=== PATIENT | female | born 1995 | race Caucasian/White ===

== ENCOUNTER 2018-07-15 17:27 | Inpatient (IN) | payer OTHER ==
[~2018-07-15] VITALS: Ht 170.2 cm; Wt 131.1 kg
[~2018-07-15 17:27] MED LIST: AMOXICILLIN875 M1 PO; BACTRIM DS TAB1 EACH PO; CYCLOBENZAPRINE5 M2 PO; FIORICET 325 MG1 TAB PO; MOTRIN 600 MG600 MG PO; NORCO 325 MG-51 TAB PO; NORCO 5-325 TA1 EACH PO; PHENERGAN25 M1 PO; TOPIRAMATE50 MG PO; TYLENOL WITH C1 EACH PO; VICODIN 5-3001 EACH PO
[2018-07-15 19:50] LABS: ABSOLUTE BASOPHIL COUNT 0.2 /CUMM (0.0-0.2); ABSOLUTE EOSINOPHIL COUNT 0.1 /CUMM (0.0-0.7); ABSOLUTE GRANULOCYTE CT 14.7 /CUMM (1.4-6.5); ABSOLUTE LYMPH COUNT 2.1 /CUMM (1.2-3.4); ABSOLUTE MONOCYTE COUNT 1.6 /CUMM (0.10-0.60); BASOPHIL % 0.8 % (0.0-2.0); EOSINOPHIL % 0.4 % (0-5); GRANULOCYTE % 78.8 % (42.2-75.2); HEMATOCRIT 37.3 % (37-47); MEAN CORPUSCULAR HGB CONC 33.7 G/DL (33.0-37.0); MEAN CORPUSCULAR VOLUME 86.1 FL (81.0-99.0); MEAN PLATELET VOLUME 6.5 FL (7.4-10.4); PLATELET COUNT 440 /CUMM (130-400); RBC DISTRIBUTION WIDTH 15.7 % (11.5-14.5); RED BLOOD CELL CT 4.33 /CUMM (4.20-5.40); WHITE BLOOD CELL COUNT 18.7 /CUMM (4.8-10.8)
--- NOTE | 2018-07-15 20:07 | ED GENERAL ADULT ---
History of Present Illness General Chief Complaint: Skin Rash/ Abcess Stated Complaint: ABSCESS ON BUTTOCKS Source: patient Exam Limitations: no limitations Vital Signs & Intake/Output Vital Signs & Intake/Output Vital Signs Date Time Temp Pulse Resp B/P B/P Pulse O2 O2 Flow FiO2 Mean Ox Delivery Rate 07/16 0116 Room Air 07/16 0054 98.2 88 20 135/83 98 07/15 2223 98.2 97 18 130/58 95 Room Air 07/15 2006 100.3 121 18 121/67 96 Room Air 07/15 1947 Room Air Room Air 07/15 1730 99.1 122 18 130/91 98 Room Air ED Intake and Output 07/16 0000 07/15 1200 Intake Total 0 Output Total Balance 0 Intake, Oral 0 Patient 290 lb Weight Weight Reported by Patient Measurement Method Allergies Coded Allergies: NO KNOWN ALLERGIES (07/31/16) Triage Note: 22 YO FEMALE TO [facility] FOR EVAL OF ABCESS ON L SIDE OF BOTTUCKS X2 DAYS. STATES HX OF SAME. TEMP 99.1 IN TRIAGE. Triage Nurses Notes Reviewed? yes Onset: Gradual Duration: day(s): Timing: remote history Severity Numbers: 8 : No Patient currently breastfeeds: No HPI: Patient is a 22-year-old female presenting to the ED with complaints of a perirectal abscess. Patient began to experience pain 1 day ago and has gradually worsened. Pain is described as an 8/10, worse with sitting and lying supine, improved with lying prone and rest. Patient states this is happened in the past approximately 2 years ago where she had an abscess incised and drained There is no pertinent medical or surgical history. The patient takes no daily medications. NKDA. (Jim Liao) Past History Travel History Traveled to [place] past 21 day No Medical History Any Pertinent Medical History? none Neurological: migraine EENT: NONE Cardiovascular: NONE Respiratory: NONE Gastrointestinal: NONE Hepatic: NONE Renal: NONE Musculoskeletal: chronic back pain Psychiatric: NONE Endocrine: NONE Blood Disorders: NONE Cancer(s): NONE TRAVEL RN OR/Reproductive: NONE Surgical History Surgical History: non-contributory Psychosocial History What is your primary language Malian Tobacco Use: Never used Family History Hx Contributory? No (Jim Liao) Review of Systems Review of Systems Constitutional: Denies: chills, diaphoresis, fever. EENTM: Denies: blurred vision, double vision, visual changes. Respiratory: Denies: cough, hemoptysis, short of breath. Cardiovascular: Denies: chest pain, edema, orthopena. GI: Denies: abdominal pain, constipation, diarrhea, distention, bowel incontinence, nausea, bloody stool. Genitourinary: Denies: discharge, dysuria. Skin: Reports: erythema. (Jim Liao) Physical Exam Physical Exam General Appearance: well developed/nourished, no apparent distress, alert, awake , anxious Head: atraumatic, normal appearance Eyes: Bilateral: normal appearance, EOMI. Ears, Nose, Throat: hearing grossly normal Neck: normal inspection, supple, full range of motion Respiratory: normal breath sounds, no respiratory distress, lungs clear Cardiovascular: regular rate/rhythm Gastrointestinal: soft, non-tender Rectal: mass Comments: There is approximately a 3 cm high perianal abscess to the left of the rectum extending laterally approximately 6 cm. It is erythemic in nature, there is a small area of fluctuance medially. Skin intact throughout. Core Measures ACS in differential dx? No CVA/TIA Diagnosis: No Sepsis Present: No Sepsis Focused Exam Completed? No (Jim Liao) Progress Differential Diagnoses I considered the following diagnoses in my evaluation of the patient: [Perianal abscess, fistula, cellulitis, allergic reaction, dermatitis,] Plan of Care: Orders Procedure Date/time Status Regular Diet 07/16 B Active CBC WITHOUT DIFFERENTIAL 07/16 0600 Active BASIC ELECTROLYTES PLUS BUN&CR 07/16 0600 Active Pathway - chart 07/16 17 Active House Staff 07/16 17 Active Patient Data 07/16 17 Active Weight 07/167 Active Vital Signs 07/16 17 Active Teach/Educate 07/16 17 Active Pain Treatment and Response 07/16 17 Active Nutritional Intake, Monitor 07/16 17 Active Isolation 07/16 17 Active Intake & Output 07/16 17 Active Patient Care Conference 07/16 17 Active Activity/Ambulation 07/16 17 Active Code Status 07/16 17 Active VTE Mechanical Prophylaxis 07/16 UNK Active Vital Signs 07/16 UNK Active Activity/Ambulation 07/16 UNK Active Patient Data 07/15 2339 Active Saline Lock 07/15 2335 Active Misc Message 07/15 2335 Active ED Holding Orders 07/15 2335 Active Admit to inpatient 07/15 2335 Active Vital Signs 07/15 2335 Active Code Status 07/15 2335 Complete Add-on Test (ER Only) 07/15 2309 Active Add-on Test (ER Only) 07/15 2014 Active Intake & Output 07/15 1947 Active LACTIC ACID 07/15 1945 Complete HUMAN BETA HCG SCREEN 07/15 1945 Complete COMPREHENSIVE METABOLIC PANEL 07/15 1729 Complete CBC WITHOUT DIFFERENTIAL 07/15 172 Complete Current Medications Sig/Joi Start time Last Medication Dose Stop Time Status Admin Clindamycin 600 MG IQ8 07/16 0800 AC (Cleocin) Dextrose/Water 50 ML (D5W) Heparin Sodium 5,000 UNIT Q8 07/16 0600 AC (Porcine) Docusate Sodium 100 MG DAILY NEEDED PRN 07/16 0130 AC (Colace) Senna 187 MG AT BEDTIME NEED.. 07/16 0130 AC (Senokot) Acetaminophen 650 MG Q6P PRN 07/16 0030 AC 07/16 (Tylenol) 0125 Ibuprofen 600 MG Q6P PRN 07/16 0030 AC (Motrin) Sodium Chloride 1,000 ML Q13H 07/16 0030 AC (Normal Saline 0.9%) 07/16 1329 Laboratory Tests 07/15/181944: Anion Gap 8, Estimated GFR > 60, BUN/Creatinine Ratio 14.3, Glucose 89, Lactic Acid 0.9, Calcium 9.0, Total Bilirubin 0.5, AST 17, ALT 28, Alkaline Phosphatase 73, Total Protein 6.9, Albumin 3.8, Globulin 3.1, Albumin/Globulin Ratio 1.2, Total Beta HCG NEGATIVE, CBC w Diff NO MAN DIFF REQ, RBC 4.33, MCV 86.1, MCH 29.0, MCHC 33.7, RDW 15.7 H, MPV 6.5 L, Gran % 78.8 H, Lymphocytes % 11.3 L, Monocytes % 8.7, Eosinophils % 0.4, Basophils % 0.8, Absolute Granulocytes 14.7 H, Absolute Lymphocytes 2.1, Absolute Monocytes 1.6 H, Absolute Eosinophils 0.1 , Absolute Basophils 0.2 22-year-old female presenting to the ED with complaints of a perirectal abscess. Patient began to experience pain 1 day ago and has gradually worsened. Pain is described as an 8/10, worse with sitting and lying supine, improved with lying prone and rest. Patient states this is happened in the past approximately 2 years ago where she had an abscess incised and drained 2. She was referred to a Dr. Mendoza whom she admits she never followed up with. A CT scan with IV contrast was ordered to determine the depth of the abscess and determine how close it was to the rectum. CT scan results revealed a left perianal fistula measuring approximately 3.62.7 CT results combined with fever and elevated white count, the patient will be admitted with a surgical consult. 22:50 All prescriptions called in to [facility] on [address] will be canceled. Patient signed out verbally to Radha De Luna PA-C while mine production engineer surgical Attending was contacted 11:11pm. (Jim Liao) July 16, 2018 at 12:34 AM Patient signed out to me by MARKIE Sandoval 22-year-old female who presented with a left gluteal abscess. CT scan showed left perianal fistula. I performed I&D as described in the procedure note. Surgery was consulted who felt there was no acute surgical intervention needed. Patient was covered with IV clindamycin. Patient has been showing systemic symptoms concerning for sepsis. She has been febrile to 100.6 Fahrenheit with nausea, and has leukocytosis to 18. She will be admitted to general medicine for IV antibiotics. Radha De Luna PA-C (Radha Isaac) Initial ED EKG: none (Jim Liao) Differential Diagnoses I considered the following diagnoses in my evaluation of the patient: (Radha Isaac) Departure Departure Disposition: STILL A PATIENT Condition: Stable Clinical Impression Primary Impression: Perianal abscess Secondary Impressions: Perianal fistula Referrals: Susan LUNA,Cricket Koenig (PCP/Family) Departure Forms: Customer Survey General Discharge Information (Jim Liao) Admission Note Spoke With: Jarvis Newton MD Documentation of Exam: Documentation of any treatments & extenuating circumstances including Concerns Regarding Discharge (functional status, medication knowledge or non-compliance, living conditions, etc.) that warrant an admission rather than observation: [ Hemodynamic monitoring, IV antibiotics, wound care, surgery consultation, colorectal consultation, serial labs] (Radha Isaac) PA/SENIOR LINUX UNIX ADMINISTRATOR Co-Sign Statement Statement: ED Attending supervision documentation- [x] I saw and evaluated the patient. I have also reviewed all the pertinent lab results and diagnostic results. I agree with the findings and the plan of care as documented in the PA's/SENIOR LINUX UNIX ADMINISTRATOR's documentation. I discussed with dr. Newton... gen surg declined admission... given presents of systemic inflammation... (elevated wbc count, tachycardia)... pt merits iv abx, admission. [] I have reviewed the ED Record and agree with the PA's/SENIOR LINUX UNIX ADMINISTRATOR's documentation. [] Additions or exceptions (if any) to the PAs/SENIOR LINUX UNIX ADMINISTRATOR's note and plan are summarized below: [] (Odalis LUNA,Jerry Orellana) Procedures Incision and Drainage Site: left glute Blade Size: 11 I & D Procedure: Yes: betadine prep. Progress: Anesthetized with 1% Lidoderm Elliptical incision made Copious purulent drainage expressed Packing placed Patient tolerated the procedure well (Radha Isaac) Critical Care Note Critical Care Note Critical Care Time: non-applicable (Jim Liao) ED Attending Observation Initial Observation Note: I have seen and personally examined FEDERICO CORREIA on 07/15/18 at 2226. I agree with the current emergency department documentation. The disposition (admission or discharge) is uncertain at this time, she needs a period of observation for the following reason(s): The ED Nurse caring for this patient has been personally informed as to what the patient is being observed for. (Jim Liao)
[2018-07-15] MEDS ORDERED: AUGMENTIN 875-1 EACH PO (22:26)
--- NOTE | 2018-07-15 22:29 | CT SCAN REPORT ---
EXAMINATION: CT PELVIS WITH CONTRAST CLINICAL INFORMATION: Perirectal abscess, close to rectum. COMPARISON: CT abdomen and pelvis 03/27/2014. TECHNIQUE: Helical scanning was performed with submillimeter collimation through the pelvis with 95 mL of Optiray 320 intravenous contrast. Sagittal and coronal multiplanar 2-D reconstructions were obtained. DLP: 1259 mGy-cm FINDINGS: There is a heterogeneous fistula/collection in the left perianal fat which tracks to the left intergluteal skin surface. This measures approximately 3.6 x 2.7 x 6.9 cm and contains mixed gas and fluid. Suspect a thin tract extending from the left lateral wall of the anus at the 3 o'clock position (12 o'clock defined as anterior and 6 o'clock posterior) to the cephalad aspect of the aforementioned fistula/collection (see assistance representative weiss images). There is stranding in the fat adjacent to this tract/collection. No evidence of extension of this tract through the levator ani muscle. No other discrete fistula or abscess. No free pelvic fluid. Bowel gas pattern is nonobstructive. The bladder is unremarkable. No suspicious ovarian or adnexal lesion. No adenopathy. No acute osseous abnormalities. There is chronic mineralization in the posterior lumbar soft tissues. IMPRESSION: Findings suggest a left perianal fistula as described above (see weiss images).
[2018-07-15] MEDS ORDERED: BACTRIM DS TAB1 EACH PO (22:38)
[2018-07-15] MEDS ORDERED: KEFLEX500 M1 PO (22:38)
--- NOTE | 2018-07-15 23:58 | History & Physical ---
TahirMelissa 07/15/18 7788: General Information and HPI MD Statement: I have seen and personally examined FEDERICO CORREIA and documented this H&P. The patient is a 22 year old F who presented with a patient stated chief complaint of []. Source of Information: patient Exam Limitations: no limitations History of Present Illness: 22 year old female with PMH migraine, chronic back pain, and h/o felicia anal abscess 2 years ago requiring 2 I&D as it became infected after first I&D. She was referred to Dr. Mendoza at that time, but did not follow up with him. She reports a two day history of rectal pain that was progressive in nature. She has tried sitz baths and heat to the area without relief of symptoms. She reports her last BM was yesterday, small/non bloody 2/2 pain. She decided to come to the ED for further care. Denies fever, chills, n/v/d, constipation, abdominal pain, chest pain, SOB. Allergies/Medications Allergies: Coded Allergies: NO KNOWN ALLERGIES (07/31/16) Past History Travel History Traveled to [place] past 21 day No Medical History Neurological: migraine EENT: NONE Cardiovascular: NONE Respiratory: NONE Gastrointestinal: NONE, felicia anal abscess Hepatic: NONE Renal: NONE Musculoskeletal: chronic back pain Psychiatric: NONE Endocrine: NONE Blood Disorders: NONE Cancer(s): NONE ECOLOGIST/Reproductive: NONE Surgical History Surgical History: non-contributory Past Family/Social History Psychosocial History Where do you live? Home Who Do You Live With? self Services at Home: None Primary Language: Kyrgyz Smoking Status: Current Everyday Smoker (cut back from 1ppd to 4cigs) ETOH Use: occasional use Illicit Drug Use: marijuana (frequent marijuana use) Employment History Employment Employed Profession/Employer gas station and [employer] Review of Systems Review of Systems Constitutional: Reports: no symptoms. EENTM: Reports: no symptoms. Cardiovascular: Reports: no symptoms. Respiratory: Reports: no symptoms. GI: Reports: see HPI. Genitourinary: Reports: no symptoms. Musculoskeletal: Reports: no symptoms. Skin: Reports: erythema. Neurological/Psychological: Reports: no symptoms. Exam & Diagnostic Data Last 24 Hrs of Vital Signs/I&O Vital Signs Date Time Temp Pulse Resp B/P B/P Pulse O2 O2 Flow FiO2 Mean Ox Delivery Rate 08/26 2223 98.2 97 18 130/58 95 Room Air 07/15 2006 100.3 121 18 121/67 96 Room Air 07/15 1947 Room Air Room Air 07/15 1730 99.1 122 18 130/91 98 Room Air Intake & Output 07/16 0800 07/16 0000 07/15 1600 Intake Total 0 Output Total Balance 0 Intake, Oral 0 Patient 290 lb Weight Weight Reported by Patient Measurement Method Physical Exam General Appearance Alert, Oriented X3, Cooperative, No Acute Distress Skin felicia anal abscess s/p I&D with dressing in place; surrounding erythema and foul odor Skin Temp/Moisture Exam: Warm/Dry HEENT Atraumatic Neck Supple Cardiovascular Regular Rate, Normal S1, Normal S2, No Murmurs Lungs Clear to Auscultation Abdomen Normal Bowel Sounds, Soft, No Tenderness Extremities No Edema, Normal Pulses Rectal see skin exam Assessment/Plan Assessment: 22 year old female with PMH migraine, chronic back pain, and h/o felicia anal abscess 2 years ago requiring 2 I&D as it became infected after first I&D. She was referred to Dr. Mendoza at that time, but did not follow up with him. She reports a two day history of rectal pain that was progressive in nature. She has tried sitz baths and heat to the area without relief of symptoms. She reports her last BM was yesterday, but small 2/2 pain. Incision and drainage with packing was performed in ED by ED MARKIE. Unfortunately no cultures were obtained. Surgery was consulted with recommendation of IV abx followed by PO abx and follow up as outpatient with Dr. Lechuga; will need daily dressing changes; stool softners and sitz baths. She will be admitted to the general medicine service for further treatment of the following: Problem List: 1. Perianal abscess 2. Leukocytosis 3. Tachycardia 4. Thrombocytosis 5. Morbid obesity 6. Current smoker Admission Data: VS Tmax 100.3 P122 RR18 BP130/91 Sat98%RA Labs: WBC 18.7 H/H 12.6/37.3 Plt 440 Na 136 K4.1 BUN/Cr 10/0.7 Lactate 0.9 LFTs; Alk Phos negative. Beta HCG negative ED tx: I&D with purulent drainage and subsequently packed; clindamycin; zofran; toradol; tylenol 650mg x1dose CT pelvis: There is a heterogeneous fistula/collection in the left perianal fat which tracks to the left intergluteal skin surface. This measures approximately 3.6 x 2.7 x 6.9 cm and contains mixed gas and fluid. Suspect a thin tract extending from the left lateral wall of the anus at the 3 o'clock position. Findings suggest a left perianal fistula. There is stranding in the fat adjacent to this tract/collection. No evidence of extension of this tract through the levator ani muscle. #Left gluteal/perianal abscess-recurrent likely 2/2 poor hygeine given patient BMI and less likely to be associated with IBD since patient with no history of diarrhea/abdominal pain/oral ulcers. -s/p I&D in ED with packing in place -daily packing changes -Continue clindamycin with coverage of Gram + and anaerobes; consider role for gram negative coverage if abscess formation related to poor hygeine in setting of stool. Patient with fistula that currently is not communicating with GI tract on CT imaging and no involvement with levator ani muscle. Patient's last I &D culture grew mixed alisia which is not helpful in resolving the decision to cover gram negatives. If gram negatives are included in possible etiology of infection; ciprofloxacin would be a good abx for coverage. -Bowel care: senna/colace -Follow up outpatient with Dr. Lechuga -Continue daily packing changes with sitz baths at home upon discharge until seeing Dr. Lechuga #Leukocytosis-likely in response to underlying perianal infection with predominant granulocytes -AM labs to monitor leukocytosis resolution with administration of abx; if not down trending on current regimen, consider broadening spectrum of coverage to include gram negatives #Tachycardia-likely physiologic response to fever and infection. Patient without sx of palpitations; chest pain; otherwise young and healthy except for morbid obesity -continue to monitor vitals #Thrombocytosis-likely reactive to current infection -continue to monitor #Morbid obesity-likely 2/2 lifestyle/food choices #Current smoker -patient has decreased from 1ppd to 4 cigarettes -patient has been smoking for 8 years -discussed/encouraged smoking cessation DVT prophylaxis: heparin/ ALPS/ ambulation Code status: full code As Ranked By This Provider Problem List: 1. Left buttock abscess 2. Perianal abscess 3. Perianal fistula Core Measures/Misc (08/06) Acute Coronary Syndrome ACS Diagnosis: No Congestive Heart Failure Congestive Heart Failure Diagnosis No Cerebrovascular Accident CVA/TIA Diagnosis: No VTE (View Protocol) VTE Risk Factors Acute Medical Illness No Mechanical VTE Prophylaxis d/t N/A MechProphylax Ordered No VTE Pharm Prophylaxis d/t NA PharmProphylax ordered Sepsis (View protocol) Sepsis Present: No If YES complete Sepsis Event Note If YES complete Sepsis Event Note Karl Moffett 07/16/18 0121: Core Measures/Misc (08/06) Sepsis (View protocol) If YES complete Sepsis Event Note If YES complete Sepsis Event Note Resident Review Statement Resident Statement: examined this patient, discussed with web development intern, agreed with web development intern, discussed with family, reviewed EMR data (avail), discussed with nursing , discussed with case mgmt, reviewed images, amended to note Other Findings: This is a 22-year-old female with past medical history significant for migraine, back pain presented to the emergency department for evaluation of perianal abscess. Patient reports that she has history of perianal abscess twice in 2016 status post I/D. She was advised to follow-up with Dr. Mendoza as an outpatient but she failed to follow-up. Patient reports 2 day history of rectal pain, 10 out of 10 , she tried sitz bath without any relief of symptoms. Given worsening pain she presented to the ER for further evaluation of perianal abscess. On review of systems she has no fever, chills, chest pain, palpitations, cough, nausea, vomiting, abdominal pain, change in bladder or bowel habits. She denied any constipation, last bowel movement was on 07/15/2018. Denied any blood in stool. She smokes 1 pack per day/cut down to 4 cigarettes per day. Occasional use of alcohol. She reports illicit drug use marijuana frequently ---- VS Tmax 100.3 P122 RR18 BP130/91 Sat98%RA Labs: WBC 18.7 H/H 12.6/37.3 Plt 440 Na 136 K4.1 BUN/Cr 10/0.7 Lactate 0.9 LFTs; Alk Phos negative. Beta HCG negative ED tx: I&D with purulent drainage and subsequently packed; clindamycin; zofran; toradol; tylenol 650mg x1dose CT pelvis: There is a heterogeneous fistula/collection in the left perianal fat which tracks to the left intergluteal skin surface. This measures approximately 3.6 x 2.7 x 6.9 cm and contains mixed gas and fluid. Suspect a thin tract extending from the left lateral wall of the anus at the 3 o'clock position. Findings suggest a left perianal fistula. There is stranding in the fat adjacent to this tract/collection. No evidence of extension of this tract through the levator ani muscle. 1. Perianal abscess Patient has history of recurrent perianal abscess, status post incision and drainage in 2016 twice. She presented now with similar complaints. Mostly associated from morbid obesity and poor hygiene. Patient denied any abdominal pain, blood in stools, history of Crohn's disease. * Admit to general medicine * She is status post incision and drainage in the emergency room with packing in place. * Monitor for fever * Please trend leukocyte count * Continue IV clindamycin 600 mg every 8 hours for gram-positive and anaerobic coverage * Consider switching to oral antibiotics if her vitals remained stable * Daily dressings * Patient was evaluated by surgical PA in the emergency room, recommended follow -up with Dr. Rajput as an outpatient this week. * consider GI referal/ follow-up as an outpatient * Avoid constipation * Bowel regimen was ordered * Sitz bath at home upon discharge Positive SIRS criteria She fulfills SIRS criteria at the time of admission T-max 100.3, leukocytosis 18.7, tachycardia 97. Source of infection was perianal abscess. * Follow for fevers * Trend leukocyte count * Lactic acid in normal limit * Continue antibiotics Thrombocytosis Most likely reactive to current infection Continue to monitor Current smoker Smoking cessation counseling given Morbid obesity DVT prophylaxis subcu heparin Regular diet Full code Pain pathway ordered WasJarvis mcgee MD 07/16/18 0610: Core Measures/Misc (08/06) Sepsis (View protocol) If YES complete Sepsis Event Note If YES complete Sepsis Event Note Attending MD Review Statement Attending Statement Attending MD Statement: examined this patient, discuss w/resident/PA/PLANE RUNNER, agreed w/resident/PA/PLANE RUNNER Attending Assessment/Plan: 22 year-old female with prior history of perianal abscess presents with rectal and buttock pain over the last 2 days. Demonstrating systemic signs of illness; fever, chills. Temp to 100.3 in ER with left shifted leukocytosis, thrombocytosis. Given clindaymycin in ER along with NSAIDs and Tylenol for the pain/fever. Surgery consult called after CT scan showed a large left perianal fat fluid collection, measuring 3.6cm x 2.7 x 6.9. Mixed fluid and gas is shown, and there is thin stranding (fistula formation) running from the left lateral wall of the anus to the large fluid collection. Underwent bedside incision and drainage (fluid expressed wasn't sent for culture). Will continue with clindaymycin for now. Non-toxic in appearance. Admit to inpatient for management of large perianal abscess with fistula extension. This is her second occurrence of this. Anaerobic and gram positive coverage with clindaymycin. Pain and fever control with Tylenol/NSAIDS/opiates. Zofran as needed. Surgery consultation already called. Query if unrecognized Crohns disease is possible given second occurrence of this- once the acute episode has been managed, likely evaluation by Gastroenterology (perhaps as an outpatient) would be reasonable. Brady Newton MD
--- NOTE | 2018-07-16 00:07 | Cons- General Surgery ---
JeanetteMarni 07/15/18 2356: General Information and HPI Consulting Request Date of Consult: 07/15/18 Requested By: ER, Dr Barajas Reason for Consult: perianal abscess Source of Information: patient Exam Limitations: no limitations History of Present Illness: 22 y/o female presents to the ER with several day history of left buttock pain. 2 years ago she had an abscess in this area with similar pain and symptoms. She had it drained and packed in the ER. She did not follow-up as it healed on its own over time. She denies fevers or chills and feels well. No nausea, vomiting or diarrhea, no history of crohns or UC. BMs have been normal without blood. Allergies/Medications Allergies: Coded Allergies: NO KNOWN ALLERGIES (07/31/16) Current Medications: Current Medications Sig/Joi Start time Last Medication Dose Route Stop Time Status Admin Acetaminophen 0 .STK-MED ONE 07/15 2105 DC PO Acetaminophen 650 MG ONCE ONE 07/15 2100 DC 07/15 PO 07/15 Clindamycin 600 MG ONCE ONE 07/150 DC Dextrose/Water 50 ML IV 07/15 2359 Ketorolac 0 .STK-MED ONE 07/15 2105 DC Tromethamine .ROUTE Ketorolac 30 MG ONCE ONE 07/15 2100 DC 07/15 Tromethamine IM 07/15 Lidocaine 0 .STK-MED ONE 07/15 2337 DC .ROUTE Ondansetron HCl 0 .STK-MED ONE 07/15 2105 DC PO Ondansetron HCl 4 MG ONCE ONE 07/15 2100 DC 07/15 PO 07/15 Past History Medical History Neurological: migraine EENT: NONE Cardiovascular: NONE Respiratory: NONE Gastrointestinal: NONE Hepatic: NONE Renal: NONE Musculoskeletal: chronic back pain Psychiatric: NONE Endocrine: NONE Blood Disorders: NONE Cancer(s): NONE DUCT INSTALLER/Reproductive: NONE Surgical History Pertinent Surgical History: non-contributory Review of Systems Review of Systems Constitutional: Denies: chills, fever, weakness. EENTM: Denies: no symptoms. Cardiovascular: Denies: chest pain, palpitations. Respiratory: Denies: cough, orthopnea, short of breath. GI: Denies: abdominal pain, bloating, diarrhea, nausea, bloody stool, vomiting. Genitourinary: Denies: no symptoms. Musculoskeletal: Denies: no symptoms. Skin: Reports: cysts. Neurological/Psychological: Denies: no symptoms. Hematologic/Endocrine: Denies: no symptoms. Exam & Diagnostic Data Vital Signs and I&O Vital Signs Date Time Temp Pulse Resp B/P B/P Pulse O2 O2 Flow FiO2 Mean Ox Delivery Rate 07/15 2223 98.2 97 18 130/58 95 Room Air 07/15 2006 100.3 121 18 121/67 96 Room Air 07/15 1947 Room Air Room Air 07/150 99.1 122 18 130/91 98 Room Air Intake & Output 07/16 0000 07/15 1600 07/15 0000 07/14 1600 Intake Total 0 Output Total Balance 0 Intake, Oral 0 Patient 290 lb Weight Weight Reported by Patient Measurement Method Physical Exam: Patient is alert and oriented, comfortable on stretcher HEENT -WNL Neck -Supple, NT Chest - CTA Heart- RRR without MRG Abd -rounded without distention, NT rectal exam - tender indurated erythematous skin at the left perianal area - actively draining. I expressed approx 60cc of purulent drainage, rectal exam -tender without abscess within rectum but fistula present Plan - ER staff to complete I+D with irrigation and packing Last 24 Hours of Labs: Laboratory Tests 07/15 1945 Chemistry Sodium (137 - 145 mmol/L) 136 L Potassium (3.5 - 5.1 mmol/L) 4.1 Chloride (98 - 107 mmol/L) 103 Carbon Dioxide (22 - 30 mmol/L) 25 Anion Gap (5 - 16) 8 BUN (7 - 17 mg/dL) 10 Creatinine (0.5 - 1.0 mg/dL) 0.7 Estimated GFR (>60 ml/min) > 60 BUN/Creatinine Ratio (7 - 25 %) 14.3 Glucose (65 - 99 mg/dL) 89 Lactic Acid (0.7 - 2.1 mmol/L) 0.9 Calcium (8.4 - 10.2 mg/dL) 9.0 Total Bilirubin (0.2 - 1.3 mg/dL) 0.5 AST (14 - 36 U/L) 17 ALT (9 - 52 U/L) 28 Alkaline Phosphatase (<127 U/L) 73 Total Protein (6.3 - 8.2 g/dL) 6.9 Albumin (3.5 - 5.0 g/dL) 3.8 Globulin (1.9 - 4.2 gm/dL) 3.1 Albumin/Globulin Ratio (1.1 - 2.2 %) 1.2 Total Beta HCG (NEGATIVE) NEGATIVE Hematology CBC w Diff NO MAN DIFF REQ WBC (4.8 - 10.8 /CUMM) 18.7 H RBC (4.20 - 5.40 /CUMM) 4.33 Hgb (12.0 - 16.0 G/DL) 12.6 Hct (37 - 47 %) 37.3 MCV (81.0 - 99.0 FL) 86.1 MCH (27.0 - 31.0 PG) 29.0 MCHC (33.0 - 37.0 G/DL) 33.7 RDW (11.5 - 14.5 %) 15.7 H Plt Count (130 - 400 /CUMM) 440 H MPV (7.4 - 10.4 FL) 6.5 L Gran % (42.2 - 75.2 %) 78.8 H Lymphocytes % (20.5 - 51.1 %) 11.3 L Monocytes % (1.7 - 9.3 %) 8.7 Eosinophils % (0 - 5 %) 0.4 Basophils % (0.0 - 2.0 %) 0.8 Absolute Granulocytes (1.4 - 6.5 /CUMM) 14.7 H Absolute Lymphocytes (1.2 - 3.4 /CUMM) 2.1 Absolute Monocytes (0.10 - 0.60 /CUMM) 1.6 H Absolute Eosinophils (0.0 - 0.7 /CUMM) 0.1 Absolute Basophils (0.0 - 0.2 /CUMM) 0.2 Imaging Results: CT shows There is a heterogeneous fistula/collection in the left perianal fat which tracks to the left intergluteal skin surface. This measures approximately 3.6 x 2.7 x 6.9 cm and contains mixed gas and fluid. Suspect a thin tract extending from the left lateral wall of the anus at the 3 o'clock position (12 o'clock defined as anterior and 6 o'clock posterior) to the cephalad aspect of the aforementioned fistula/collection (see operations representative weiss images). There is stranding in the fat adjacent to this tract/collection. No evidence of extension of this tract through the levator ani muscle. No other discrete fistula or abscess. Admission Lab Results I reviewed the following labs: Laboratory Tests 07/15 1945 Chemistry Sodium (137 - 145 mmol/L) 136 L Potassium (3.5 - 5.1 mmol/L) 4.1 Chloride (98 - 107 mmol/L) 103 Carbon Dioxide (22 - 30 mmol/L) 25 Anion Gap (5 - 16) 8 BUN (7 - 17 mg/dL) 10 Creatinine (0.5 - 1.0 mg/dL) 0.7 Estimated GFR (>60 ml/min) > 60 BUN/Creatinine Ratio (7 - 25 %) 14.3 Glucose (65 - 99 mg/dL) 89 Lactic Acid (0.7 - 2.1 mmol/L) 0.9 Calcium (8.4 - 10.2 mg/dL) 9.0 Total Bilirubin (0.2 - 1.3 mg/dL) 0.5 AST (14 - 36 U/L) 17 ALT (9 - 52 U/L) 28 Alkaline Phosphatase (<127 U/L) 73 Total Protein (6.3 - 8.2 g/dL) 6.9 Albumin (3.5 - 5.0 g/dL) 3.8 Globulin (1.9 - 4.2 gm/dL) 3.1 Albumin/Globulin Ratio (1.1 - 2.2 %) 1.2 Total Beta HCG (NEGATIVE) NEGATIVE Hematology CBC w Diff NO MAN DIFF REQ WBC (4.8 - 10.8 /CUMM) 18.7 H RBC (4.20 - 5.40 /CUMM) 4.33 Hgb (12.0 - 16.0 G/DL) 12.6 Hct (37 - 47 %) 37.3 MCV (81.0 - 99.0 FL) 86.1 MCH (27.0 - 31.0 PG) 29.0 MCHC (33.0 - 37.0 G/DL) 33.7 RDW (11.5 - 14.5 %) 15.7 H Plt Count (130 - 400 /CUMM) 440 H MPV (7.4 - 10.4 FL) 6.5 L Gran % (42.2 - 75.2 %) 78.8 H Lymphocytes % (20.5 - 51.1 %) 11.3 L Monocytes % (1.7 - 9.3 %) 8.7 Eosinophils % (0 - 5 %) 0.4 Basophils % (0.0 - 2.0 %) 0.8 Absolute Granulocytes (1.4 - 6.5 /CUMM) 14.7 H Absolute Lymphocytes (1.2 - 3.4 /CUMM) 2.1 Absolute Monocytes (0.10 - 0.60 /CUMM) 1.6 H Absolute Eosinophils (0.0 - 0.7 /CUMM) 0.1 Absolute Basophils (0.0 - 0.2 /CUMM) 0.2 Assessment/Plan Assessment/Plan 22 y/o female with draining perianal abscess. I+D performed by ER staff. Admit to medicine for IV abx -started on clinda in ER, continue PO abx as outpatient will need daily dressing changes and follow-up with Dr. Lechuga as an outpatient in his office in 3 days for packing removal recommend sitz baths, colace and senna Consult Acknowledgment - Thank you for your consult request. Alexandrea GALLAGHER Abraham 07/16/18 5238: General Information and HPI Allergies/Medications Home Med List: Clindamycin HCl (Cleocin HCl) 300 MG CAPSULE 600 MG PO TID INFECTION Docusate Sodium (Colace) 100 MG CAPSULE 100 MG PO BID CONSTIPATION Lactobacillus Acidophilus (Acidophilus) 1 EACH CAPSULE 1 TAB PO TID ANTIBIOTIC USE Sennosides (Senna) 8.6 MG TABLET 2 TAB PO BID PRN CONSTIPATION Assessment/Plan Consult Acknowledgment - Thank you for your consult request. Attending MD Review Statement Attending Statement Attending MD Statement: examined this patient, discuss w/resident/PA/SUPERVISOR TRAIN OPERATIONS, agreed w/resident/PA/SUPERVISOR TRAIN OPERATIONS, reviewed EMR data (avail), reviewed images Attending Assessment/Plan: Patient seen and examined, agree with above. [place]-rectal abscess with a ? fistula. S/P I and D by ER last night. Patient reports marked improvement in pain and discomfort. Dressing in place. AVSS. WBC down. Wound care, sitz baths, Abx, will need outpatient f/u for possible fistula.
[2018-07-16 00:54] VITALS: BP 135/83
[2018-07-16 06:33] VITALS: BP 135/70
--- NOTE | 2018-07-16 07:10 | PN- Housestaff ---
Troy Padilla 07/16/18 0710: Subjective Follow-up For: Perianal abscess/fistula Subjective: She was seen and examined at bedside. She is complaining mild pain otherwise she is doing good. She denies fever, chills, constipation, diarrhea, chest pain , palpitation, previous history of any diarrhea or loose motion, hematochezia, melena. Review of Systems Constitutional: Reports: see HPI. Objective Last 24 Hrs of Vital Signs/I&O Vital Signs Date Time Temp Pulse Resp B/P B/P Pulse O2 O2 Flow FiO2 Mean Ox Delivery Rate 07/16 0633 97.7 76 20 135/70 98 07/16 0116 Room Air 07/16 0054 98.2 88 20 135/83 98 07/15 2223 98.2 97 18 130/58 95 Room Air 07/15 2006 100.3 121 18 121/67 96 Room Air 07/15 1947 Room Air Room Air 07/15 1730 99.1 122 18 130/91 98 Room Air Intake & Output 07/16 1600 07/16 0800 07/16 0000 Intake Total 262.5 0 Output Total Balance 262.5 0 Intake, IV 262.5 Intake, Oral 0 Patient 289 lb 290 lb Weight Weight Bed scale Reported by Patient Measurement Method Physical Exam General Appearance: Alert, Oriented X3, Cooperative, No Acute Distress Assessment/Plan Assessment: 22-year-old female morbidly obese presented to emergency department with several days of buttock pain history. She had similar complaints 2 years back. At that time it was diagnosed perianal abscess. Incision and drainage were done at that time. No on examination the patient has same problem perianal abscess. Incision and drainage done in the emergency department We will follow-up as outpatient patient with Dr. Rajput. *Give her IV antibiotic clindamycin *Patient will discharge today on oral antibiotic clindamycin 600 mg 3 times daily for 10 days. *Patient counseled regarding medication compliance *Patient counseled to follow-up Dr. Rajput on outpatient basis *Patient consult regarding clean hygiene Problem List: 1. Perianal abscess 2. Perianal fistula Pain Ratin Pain Location: No pain at the moment Pain Goal: Remain pain free Pain Plan: Pain management pathway Tomorrow's Labs & Rationales: Alaina Delgado 07/16/18 1126: Attending MD Review Statement Attending Statement Attending MD Statement: examined this patient, discuss w/resident/PA/INTERNAL RECRUITER, agreed w/resident/PA/INTERNAL RECRUITER, discussed with family, reviewed EMR data (avail), discussed with nursing, discussed with case mgmt, reviewed images, amended to note Attending Assessment/Plan: 22 year-old female with prior history of perianal abscess presents with rectal and buttock pain over the last 2 days. Admit to inpatient for management of large perianal abscess with fistula extension s/p incision and drainage. Transition of iv to PO abx. Pain and fever control with Tylenol/NSAIDS/opiates. Zofran as needed. Surgery follow up as outpatient. Anticipate discharge soon.
[2018-07-16 09:06] LABS: ABSOLUTE BASOPHIL COUNT 0.1 /CUMM (0.0-0.2); ABSOLUTE EOSINOPHIL COUNT 0.3 /CUMM (0.0-0.7); ABSOLUTE GRANULOCYTE CT 10.9 /CUMM (1.4-6.5); ABSOLUTE LYMPH COUNT 3.5 /CUMM (1.2-3.4); ABSOLUTE MONOCYTE COUNT 1.4 /CUMM (0.10-0.60); BASOPHIL % 0.3 % (0.0-2.0); EOSINOPHIL % 1.7 % (0-5); GRANULOCYTE % 67.5 % (42.2-75.2); HEMATOCRIT 34.2 % (37-47); MEAN CORPUSCULAR HGB 29.8 PG (27.0-31.0); MEAN CORPUSCULAR HGB CONC 34.1 G/DL (33.0-37.0); MEAN CORPUSCULAR VOLUME 87.5 FL (81.0-99.0); MEAN PLATELET VOLUME 7.2 FL (7.4-10.4); PLATELET COUNT 376 /CUMM (130-400); RBC DISTRIBUTION WIDTH 15.5 % (11.5-14.5); RED BLOOD CELL CT 3.91 /CUMM (4.20-5.40); WHITE BLOOD CELL COUNT 16.1 /CUMM (4.8-10.8)
--- NOTE | 2018-07-16 09:46 | PN- General Surgery ---
Subjective Subjective: Patient feels better this am, no fevers or chills Objective Vital Signs and I&Os Vital Signs Date Time Temp Pulse Resp B/P B/P Pulse O2 O2 Flow FiO2 Mean Ox Delivery Rate 07/16 633 97.7 76 20 135/70 98 07/16 0116 Room Air 07/16 0054 98.2 88 20 135/83 98 07/15 2223 98.2 97 18 130/58 95 Room Air 07/15 2006 100.3 121 18 121/67 96 Room Air 07/15 1947 Room Air Room Air 07/15 1730 99.1 122 18 130/91 98 Room Air Intake & Output 07/16 1600 07/16 0800 07/16 0000 07/15 1600 07/15 0000 Intake Total 262.5 0 Output Total Balance 262.5 0 Intake, IV 262.5 Intake, Oral 0 Patient 289 lb 290 lb Weight Weight Bed scale Reported by Patient Measurement Method Physical Exam: alert and oriented, comfortable VSS afebrile heart-RRR chest-CTA symmetric abd -rounded without distention nontender left buttock area- dressings partially saturated with serosang drainage outer dressing changed packing to remain in place, less induration and fullness this morning Current Medications: Current Medications Sig/Joi Start time Last Medication Dose Route Stop Time Status Admin Acetaminophen 650 MG Q6P PRN 07/16 0030 AC 07/16 PO 0125 Acetaminophen 0 .STK-MED ONE 07/15 2105 DC PO Acetaminophen 650 MG ONCE ONE 07/15 2100 DC 07/15 PO 07/15 2101 210 Clindamycin 600 MG IQ8 07/16 0800 AC 07/16 Dextrose/Water 50 ML IV 0737 Clindamycin 600 MG ONCE ONE 07/15 2330 DC 07/16 Dextrose/Water 50 ML IV 07/15 2359 0022 Docusate Sodium 100 MG DAILY NEEDED PRN 07/16 0130 AC PO Heparin Sodium 5,000 UNIT Q8 07/16 0600 AC (Porcine) SC Ibuprofen 600 MG Q6P PRN 07/16 0030 AC PO Ketorolac 0 .STK-MED ONE 07/15 2105 DC Tromethamine .ROUTE Ketorolac 30 MG ONCE ONE 07/15 2100 DC 07/15 Tromethamine IM 07/15 2101 210 Lidocaine 20 ML ONCE ONE 07/16 0015 DC 07/16 ID 07/16 0016 0022 Lidocaine 0 .STK-MED ONE 07/15 2337 DC .ROUTE Ondansetron HCl 0 .STK-MED ONE 07/15 2105 DC PO Ondansetron HCl 4 MG ONCE ONE 07/15 2100 DC 07/15 PO 07/15 2101 210 Patient Medication 1 ED ONE ONE 07/16 0930 DC Teaching ED 07/16 0931 Senna 187 MG AT BEDTIME NEED.. 07/16 0130 AC PO Sodium Chloride 1,000 ML Q13H 07/16 0030 AC 07/16 IV 07/16 1329 0145 Results Last 48 Hours of Labs: Laboratory Tests 07/16 07/15 0656 1945 Chemistry Sodium (137 - 145 mmol/L) 137 136 L Potassium (3.5 - 5.1 mmol/L) 4.0 4.1 Chloride (98 - 107 mmol/L) 104 103 Carbon Dioxide (22 - 30 mmol/L) 24 25 Anion Gap (5 - 16) 9 8 BUN (7 - 17 mg/dL) 13 10 Creatinine (0.5 - 1.0 mg/dL) 0.7 0.7 Estimated GFR (>60 ml/min) > 60 > 60 BUN/Creatinine Ratio (7 - 25 %) 18.6 14.3 Glucose (65 - 99 mg/dL) 89 Lactic Acid (0.7 - 2.1 mmol/L) 0.9 Calcium (8.4 - 10.2 mg/dL) 9.0 Total Bilirubin (0.2 - 1.3 mg/dL) 0.5 AST (14 - 36 U/L) 17 ALT (9 - 52 U/L) 28 Alkaline Phosphatase (<127 U/L) 73 Total Protein (6.3 - 8.2 g/dL) 6.9 Albumin (3.5 - 5.0 g/dL) 3.8 Globulin (1.9 - 4.2 gm/dL) 3.1 Albumin/Globulin Ratio (1.1 - 2.2 %) 1.2 Total Beta HCG (NEGATIVE) NEGATIVE Hematology CBC w Diff NO MAN DIFF REQ NO MAN DIFF REQ WBC (4.8 - 10.8 /CUMM) 16.1 H 18.7 H RBC (4.20 - 5.40 /CUMM) 3.91 L 4.33 Hgb (12.0 - 16.0 G/DL) 11.7 L 12.6 Hct (37 - 47 %) 34.2 L 37.3 MCV (81.0 - 99.0 FL) 87.5 86.1 MCH (27.0 - 31.0 PG) 29.8 29.0 MCHC (33.0 - 37.0 G/DL) 34.1 33.7 RDW (11.5 - 14.5 %) 15.5 H 15.7 H Plt Count (130 - 400 /CUMM) 376 440 H MPV (7.4 - 10.4 FL) 7.2 L 6.5 L Gran % (42.2 - 75.2 %) 67.5 78.8 H Lymphocytes % (20.5 - 51.1 %) 21.6 11.3 L Monocytes % (1.7 - 9.3 %) 8.9 8.7 Eosinophils % (0 - 5 %) 1.7 0.4 Basophils % (0.0 - 2.0 %) 0.3 0.8 Absolute Granulocytes (1.4 - 6.5 /CUMM) 10.9 H 14.7 H Absolute Lymphocytes (1.2 - 3.4 /CUMM) 3.5 H 2.1 Absolute Monocytes (0.10 - 0.60 /CUMM) 1.4 H 1.6 H Absolute Eosinophils (0.0 - 0.7 /CUMM) 0.3 0.1 Absolute Basophils (0.0 - 0.2 /CUMM) 0.1 0.2 Admission Lab Results I reviewed the following labs: Laboratory Tests 07/16 07/15 0656 1945 Chemistry Sodium (137 - 145 mmol/L) 137 136 L Potassium (3.5 - 5.1 mmol/L) 4.0 4.1 Chloride (98 - 107 mmol/L) 104 103 Carbon Dioxide (22 - 30 mmol/L) 24 25 Anion Gap (5 - 16) 9 8 BUN (7 - 17 mg/dL) 13 10 Creatinine (0.5 - 1.0 mg/dL) 0.7 0.7 Estimated GFR (>60 ml/min) > 60 > 60 BUN/Creatinine Ratio (7 - 25 %) 18.6 14.3 Glucose (65 - 99 mg/dL) 89 Lactic Acid (0.7 - 2.1 mmol/L) 0.9 Calcium (8.4 - 10.2 mg/dL) 9.0 Total Bilirubin (0.2 - 1.3 mg/dL) 0.5 AST (14 - 36 U/L) 17 ALT (9 - 52 U/L) 28 Alkaline Phosphatase (<127 U/L) 73 Total Protein (6.3 - 8.2 g/dL) 6.9 Albumin (3.5 - 5.0 g/dL) 3.8 Globulin (1.9 - 4.2 gm/dL) 3.1 Albumin/Globulin Ratio (1.1 - 2.2 %) 1.2 Total Beta HCG (NEGATIVE) NEGATIVE Hematology CBC w Diff NO MAN DIFF REQ NO MAN DIFF REQ WBC (4.8 - 10.8 /CUMM) 16.1 H 18.7 H RBC (4.20 - 5.40 /CUMM) 3.91 L 4.33 Hgb (12.0 - 16.0 G/DL) 11.7 L 12.6 Hct (37 - 47 %) 34.2 L 37.3 MCV (81.0 - 99.0 FL) 87.5 86.1 MCH (27.0 - 31.0 PG) 29.8 29.0 MCHC (33.0 - 37.0 G/DL) 34.1 33.7 RDW (11.5 - 14.5 %) 15.5 H 15.7 H Plt Count (130 - 400 /CUMM) 376 440 H MPV (7.4 - 10.4 FL) 7.2 L 6.5 L Gran % (42.2 - 75.2 %) 67.5 78.8 H Lymphocytes % (20.5 - 51.1 %) 21.6 11.3 L Monocytes % (1.7 - 9.3 %) 8.9 8.7 Eosinophils % (0 - 5 %) 1.7 0.4 Basophils % (0.0 - 2.0 %) 0.3 0.8 Absolute Granulocytes (1.4 - 6.5 /CUMM) 10.9 H 14.7 H Absolute Lymphocytes (1.2 - 3.4 /CUMM) 3.5 H 2.1 Absolute Monocytes (0.10 - 0.60 /CUMM) 1.4 H 1.6 H Absolute Eosinophils (0.0 - 0.7 /CUMM) 0.3 0.1 Absolute Basophils (0.0 - 0.2 /CUMM) 0.1 0.2 Assessment/Plan Assessment/Plan S/P I+D perianal abscess D/C home when medically cleared recommend -colace and senna daily sitz baths with dressing changes follow-up with Dr. Lechuga in 2 days for wound check and removal of packing cont with outpatient ABX for 7 days
[2018-07-16 14:30] VITALS: BP 128/68
[2018-07-16] MEDS ORDERED: CLEOCIN HCL300 M1 PO (16:15)
[2018-07-16] MEDS ORDERED: ACIDOPHILUS1 EACH PO (16:15)
--- NOTE | 2018-07-16 16:20 | Patient Discharge Instructions ---
Discharge Instructions General Discharge Information You were seen/treated for: Perianal abscess/fistula You had these procedures: Antibiotic treatment, incision and drainage Special Instructions: Follow-up with primary care doctor in 1 week In case of medical attention please contact your primary care doctor Keep a clean hygiene Sitz bath Diet Continue normal diet: No Activity Full Activity/No Limits: Yes Acute Coronary Syndrome Inclusion Criteria At DC or during hospital stay patient has or had the following: ACS DIAGNOSIS No Discharge Core Measures Meds if any: Prescribed or Continued at Discharge Meds if any: NOT Prescribed or Continued at Discharge Congestive Heart Failure Inclusion Criteria At DC or during hospital stay patient has or had the following: CHF DIAGNOSIS No Discharge Core Measures Meds if any: Prescribed or Continued at Discharge Meds if any: NOT Prescribed or Continued at Discharge Cerebrovascular accident Inclusion Criteria At DC or during hospital stay patient has or had the following: CVA/TIA Diagnosis No Discharge Core Measures Meds if any: Prescribed or Continued at Discharge Meds if any: NOT Prescribed or Continued at Discharge Venous thromboembolism Inclusion Criteria VTE Diagnosis No VTE Type NONE VTE Confirmed by (Test) NONE Discharge Core Measures - Per Current guidelines, there needs to be overlap - treatment for the first 5 days of Warfarin therapy. - If discharged on Warfarin prior to 5 days of - overlap therapy, the patient will need to be - assessed for post discharge needs including - *Post discharge parental anticoagulation - *Warfarin and/or parental anticoagulation education - *Follow up date to check INR post discharge At least 5 days overlap therapy as Inpatient No Meds if any: Prescribed or Continued at Discharge Note: Overlap Therapy is Warfarin and Anticoagulant Meds if any: NOT Prescribed or Continued at Discharge
--- NOTE | 2018-07-16 16:25 | Patient Discharge Instructions ---
Discharge Instructions General Discharge Information You were seen/treated for: Perianal abscess/fistula You had these procedures: Antibiotic treatment, incision and drainage Special Instructions: Follow-up with primary care doctor in 1 week In case of medical attention please contact your primary care doctor Keep a clean hygiene Sitz bath Follow up with Dr Lechuga in two days Diet Continue normal diet: No Activity Full Activity/No Limits: Yes Acute Coronary Syndrome Inclusion Criteria At DC or during hospital stay patient has or had the following: ACS DIAGNOSIS No Discharge Core Measures Meds if any: Prescribed or Continued at Discharge Meds if any: NOT Prescribed or Continued at Discharge Congestive Heart Failure Inclusion Criteria At DC or during hospital stay patient has or had the following: CHF DIAGNOSIS No Discharge Core Measures Meds if any: Prescribed or Continued at Discharge Meds if any: NOT Prescribed or Continued at Discharge Cerebrovascular accident Inclusion Criteria At DC or during hospital stay patient has or had the following: CVA/TIA Diagnosis No Discharge Core Measures Meds if any: Prescribed or Continued at Discharge Meds if any: NOT Prescribed or Continued at Discharge Venous thromboembolism Inclusion Criteria VTE Diagnosis No VTE Type NONE VTE Confirmed by (Test) NONE Discharge Core Measures - Per Current guidelines, there needs to be overlap - treatment for the first 5 days of Warfarin therapy. - If discharged on Warfarin prior to 5 days of - overlap therapy, the patient will need to be - assessed for post discharge needs including - *Post discharge parental anticoagulation - *Warfarin and/or parental anticoagulation education - *Follow up date to check INR post discharge At least 5 days overlap therapy as Inpatient No Meds if any: Prescribed or Continued at Discharge Note: Overlap Therapy is Warfarin and Anticoagulant Meds if any: NOT Prescribed or Continued at Discharge
[2018-07-16] MEDS ORDERED: COLACE100 M1 PO (16:32)
[2018-07-16] MEDS ORDERED: SENNA8.6 M3 PO (16:32)
--- NOTE | 2018-07-17 07:01 | Discharge Summary ---
Visit Information Visit Dates Admission Date: 07/15/18 Discharge Date: 07/16/18 Hospital Course Course Attending Physician: Alaina Medeiros MD Allergies: Coded Allergies: NO KNOWN ALLERGIES (07/31/16) Discharge Instructions Medications at Discharge Discharge Medications: Stop taking the following medications: Sulfamethoxazole/Trimethoprim (Bactrim Ds Tablet) 1 EACH TABLET ORAL TWICE DAILY Qty = 14 Amoxicillin (Amoxicillin) 875 MG TABLET ORAL TWICE DAILY Qty = 14 Hydrocodone/Acetaminophen ([place] 5-325 Tablet) 1 EACH TABLET ORAL THREE TIMES DAILY as needed for PAIN Qty = 15 Amoxicillin/Potassium Clav (Augmentin 875-125 Tablet) 875 MG-125 MG TABLET ORAL TWICE DAILY Qty = 20 Cephalexin (Keflex) 500 MG CAPSULE ORAL 4 TIMES A DAY Qty = 30 Sulfamethoxazole/Trimethoprim (Bactrim Ds Tablet) 800 MG-160 MG TABLET ORAL TWICE DAILY Qty = 20 Start taking the following new medications: Clindamycin HCl (Cleocin HCl) 300 MG CAPSULE 600 Milligram ORAL THREE TIMES DAILY Qty = 60 No Refills Comments: Last Taken: 07/16/18 Time: 4:00 PM (IV DOSE GIVEN) Lactobacillus Acidophilus (Acidophilus) 1 EACH CAPSULE 1 Tablet ORAL THREE TIMES DAILY Qty = 30 No Refills Comments: NOT GIVEN IN HOSPITAL Docusate Sodium (Colace) 100 MG CAPSULE 100 Milligram ORAL TWICE DAILY Qty = 60 No Refills Comments: NOT GIVEN IN HOSPTIAL Sennosides (Senna) 8.6 MG TABLET 2 Tablet ORAL TWICE DAILY as needed for CONSTIPATION Qty = 100 No Refills Comments: NOT GIVEN IN HOSPITAL
== END 2018-07-16 17:22 | DRG 394 ==
LOC: ERH 17:27 → 2NB 23:35 → ERHI 23:35 → ENRESERV 07-16 00:06 → 2NB 07-16 00:40 → ENPENDDIS 07-16 16:48 → 2NB 07-16 17:22
PROVIDERS: Hospitalist; Physician Assistant Medical
PROC: 0D9Q3ZZ Drainage of Anus, Percutaneous Approach (ICD-10-PCS; principal; 2018-07-15)
DX: K61.0 Anal abscess (principal); Z68.42 Body mass index [BMI] 45.0-49.9, adult; E66.01 Morbid (severe) obesity due to excess calories; M54.9 Dorsalgia, unspecified; F17.210 Nicotine dependence, cigarettes, uncomplicated; F12.90 Cannabis use, unspecified, uncomplicated; D47.3 Essential (hemorrhagic) thrombocythemia; K60.3 Anal fistula
CPT/HCPCS: ERO; 36592; 82436; 96372; J1644; J1885; J2001; J3101